=== PATIENT | male | born 1965 | race Two or more races ===

== ENCOUNTER 2019-02-02 15:56 | Emergency (ER) | payer OTHER ==
[2019-02-02 16:17] VITALS: BP 128/93; PULSE 68; TEMP 98.7; BMI 25.7
[2019-02-02] MEDS ORDERED: IBUPROFEN 400 MG TABLET (FP) PO ONE (16:22)
[2019-02-02] MEDS ORDERED: IBUPROFEN 600 MG TABLET (FP) PO ONE (16:24)
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
== END 2019-02-02 16:42 | disposition home or self-care (01) ==
LOC: FER 15:56
CPT/HCPCS: 99282-25